=== PATIENT | female | born 1940 | race Caucasian/White ===

== ENCOUNTER → 2017-11-26 | Outpatient (CLI) | payer OTHER ==
[~2017-11-26] MED LIST: CRESTOR10 MG; LEVOTHYROXIN0.075 MG; POTASSIUM20 PO
== END ==
LOC: RAD 00:39
DX: Z12.31 Encounter for screening mammogram for malignant neoplasm of breast (principal)

== ENCOUNTER → 2018-07-08 | Outpatient (CLI) | payer OTHER ==
[~2018-07-08] VITALS: Ht 157.5 cm; Wt 62.6 kg
[~2018-07-08] MED LIST changes: +CARVEDILOL3.125 MG PO; +COZAAR 25 MG TA25 M1 PO; +LIPITOR 20 MG T20 M1 PO; +PRESERVISION A1 EAC2 PO; +SYNTHROID112 MC1 PO; +VITAMIN D1000 UNI2 PO
--- NOTE | ~2018-07-08 | EKG ---
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: CYNTHIA : 1940 Requested By: Chun Mayer Order Number: [id number] MD: Chun Mayer Measurements Intervals [employer] Rate: 66 P: -15 OR: 166 QRS: -56 QRSD: 155 T: 127 QT: 440 QTc: 461 Interpretive Statements Sinus rhythm Left bundle branch block Compared to ECG 06/24/2018 12:53:28 No significant changes Electronically Signed On 07-08-2018 7:56:56 MODELING DIRECTOR by Chun Mayer [email or web address] <ELECTRONICALLY SIGNED> By: Chun Mayer MD, [facility] 07/08/18 0756 9 9 Chun Mayer MD, [facility] /EPI
--- NOTE | ~2018-07-08 | CATHLAB ---
[facility] [place] [address] INVASIVE PROCEDURE REPORT Name: RILEYMOJGANNATA SHETH Room #: REG [facility]#: [id number] Admission: 07/08/18 Attend Phys: Chun Mayer, Discharge: Date of : 42 Date of Service: 07/08/18 0911 Report #: [id number] THIS REPORT FOR: //name// APPROVED REPORT Study performed: 07/08/2018 07:26:01 Patient Details The patient is a 78 year-old female Event Personnel Chun Mayer Picked Edge Sewing Machine Operator, Reginaldo Jacinto RN RN, Stephanie Muñoz Sandifer, David Monitor Procedures Performed Left Heart Cath w/or w/o Coronaries [id number] [facility] Indication Chest pain Procedure Narrative The Right Groin^ was infiltrated with 1% Lidocaine subcutaneous anesthesia. A PINNACLE 6FR Sheath #[id number] sheath was inserted into the . Coronary angiography was performed using coronary diagnostic catheters. The right coronary system was accessed and visualized with a JR4 catheter. The left coronary system was accessed and visualized with a JL4 catheter. The left ventricle was accessed and visualized with a PIGTAIL catheter. Left ventricular/Aortic Valve gradient assessed via catheter pullback. Left ventriculogram was performed in 30 degree projection. Closure device was deployed with a 6 Fr MYNXGRIP 6/7F #[id number]. Intraoperative Conscious Sedation Sedation start time: 8.18 Case end Time: 8.43 Fentanyl 25 mcg Versed 1.5 mg Fluoro Time: 1.42 minutes Dose: DAP 1598 cGycm2 1.42 mGy Contrast Type and Amount: Omnipaque 100 ml Coronary Angiography The patient's coronary anatomy is right dominant. Diagnostic Cath [facility] [address] [place] [address] INVASIVE PROCEDURE REPORT Name: NATA BYNUM Room #: REG [facility]#: [id number] Admission: 07/08/18 Attend Phys: Chun Mayer, Discharge: Date of : 42 Date of Service: 07/08/18 0911 Report #: [id number] Left Main Normal left main LAD The LAD was a large vessel that extended to the inferoapex, angiographically normal Diagonal 1 Large first diagonal branch, angiographically normal Circumflex Large nondominant circumflex comprised of a single bifurcating marginal branch The circumflex was normal. OM1 A distally arising, single marginal branch was angiographically normal Right Coronary Angiographically normal right coronary R PDA Large posterior descending branch, normal RPLV Moderate posterior lateral branch, angiographically normal Left Ventriculography The left ventricle is mildly dilated in size with abnormal contractility. The left ventricular ejection fraction is estimated to be 35. Left ventricular wall motion abnormalities are not present. There is no mitral insufficiency. Hemodynamics The aortic pressure is 139/58 mmHg with a mean of 88 mmHg. The left ventricular pressure is 153/8 mmHg with a mean of mmHg. The left ventricular end diastolic pressure is 17 mmHg. There was no gradient across the aortic valve upon pullback. Pullback from the left ventricle to the aorta revealed no gradient across the aortic valve. Conclusion 1. Moderately severe left ventricular dysfunction. Ejection fraction 35-40% 2. Normal left main 3. Normal coronary vasculature. Right coronary dominant circulation. Recommendations Aggressive Medical Therapy Medications Administered LETICIA Inhibitor (any) Beta Valeria (any) Statin (any) <ELECTRONICALLY SIGNED> By: Chun Mayer MD, FAC 07/08/18910 0 0 Chun Mayer MD, FACC /INF
[2018-07-08 07:54] VITALS: BP 140/64
== END | disposition home or self-care (01) ==
LOC: CATH 06:27
DX: I11.0 Hypertensive heart disease with heart failure (principal); I50.1 Left ventricular failure, unspecified; E78.5 Hyperlipidemia, unspecified; E03.9 Hypothyroidism, unspecified; Z90.49 Acquired absence of other specified parts of digestive tract; Z98.890 Other specified postprocedural states; Z98.41 Cataract extraction status, right eye; Z98.42 Cataract extraction status, left eye; Z82.49 Family history of ischemic heart disease and other diseases of the circulatory system; Z79.891 Long term (current) use of opiate analgesic; Z79.899 Other long term (current) drug therapy

== ENCOUNTER 2018-10-28 06:19 | Observation (INO) | payer OTHER ==
[~2018-10-28] VITALS: Ht 160 cm; Wt 61.2 kg
[2018-10-28 06:56] VITALS: BP 143/74
[2018-10-28 07:02] LABS: HEMATOCRIT 40.7 % (37.0-47.0); HEMOGLOBIN 13.9 gm/dL (12.0-15.0); MCH 31.3 pg (26.0-34.0); MCV 91.9 fL (80.0-100.0); PLATELET COUNT 206 thou/uL (150-400); RBC 4.43 mil/uL (4.20-5.00); RDW 12.8 % (10.5-14.5); WBC 5.1 thou/uL (4.0-11.0)
[2018-10-28 07:15] LABS: CALCIUM 9.8 mg/dL (8.5-10.1); CREATININE 0.9 mg/dL (0.6-1.0); POTASSIUM 3.9 mmol/L (3.5-5.1)
[2018-10-28 07:16] LABS: APTT 24.4 Seconds (24.5-32.8); PROTIME 10.6 Seconds (9.3-11.4)
[2018-10-28 07:21] LABS: TOTAL BILIRUBIN 0.8 mg/dL (<0.1-1.0); TOTAL PROTEIN 7.7 g/dL (6.4-8.2)
[2018-10-28 09:01] LABS: PLATELET ESTIMATE NORMAL
--- NOTE | 2018-10-28 11:07 | NUR ---
PT arrived to CV holding bed 2 from EP lab post biv icd placement. left chest incision dry and intact wih dermabond. no dressing. VSS.
--- NOTE | 2018-10-28 12:44 | NUR ---
Report called to April in CCU. Pt will be going to room 214. Pt and family notified of room.
--- NOTE | 2018-10-28 13:36 | NUR ---
LEFT CHEST PPM PROCEDURE SITE IS CDI WITH NO HEMATOMA. SHOULDER IMOBILZER IS ON AND HOB 45 DEGREES. WILL CONTINUE TO ASSESS.
[2018-10-28 15:01] VITALS: BP 149/86
[2018-10-28 19:15] VITALS: BP 135/64
[2018-10-29 00:05] VITALS: BP 130/57
--- NOTE | 2018-10-29 03:59 | NUR ---
AOX4, DENIES PAIN. V PACED O THE MONITOR. LEFT CHEST PACEMAKER SITE C/D/I, WITH LEFT ARM IMMOBILIZER ON. PULSES 2+/2+/ LUNG SOUNDS CLEAR. ON ROOM AIR. SCD ON. IV ON THE LEFT HAND AND RIGHT AC INTACT AND FLUSHES WELL. FF UP POC.
[2018-10-29 05:30] VITALS: BP 119/70
[2018-10-29 08:10] VITALS: BP 137/61
[2018-10-29 08:47] VITALS: BP 137/61
[2018-10-29 08:51] VITALS: BP 137/61
[2018-10-29 09:07] VITALS: BP 137/61
--- NOTE | 2018-10-29 09:08 | NUR ---
PT CARE ASSUMED APPROX 0700. PT ALERT AND ORIENTED X4. DENIES PAIN AND SOA. VSS. LEFT CHEST INCISION IS C/D/I. DEVICE CHECK AND CXR NORMAL THIS AM. PT TO DISCHARGE THIS SHIFT. PAPERWORK REVIEWED WITH PT AND SPOUSE. BOTH DENY QUESTIONS OR CONCERNS REGARDING DISCHARGE MEDS, F/U APPTS, ACTIVITY RESTRICTIONS, INCISION CARE, DIET AND GENERAL POST HOSPITAL CARES. IV OUT, TELE BOX OFF. HOSPITAL STAFF TO ESCORT PT OUT TIMELY.
--- NOTE | 2018-10-30 12:17 | P ---
[facility] [place] [address] PROCEDURE REPORT Name: NATA BYNUM Room #: 214-P [facility] Arlyn Galvez#: [id number] Admission: 10/28/18 ������������������ Attend Phys: Ed Mckee MD Discharge: 10/29/18 ������������������ Date of : 42 Report #: [id number] THIS REPORT FOR: //name// CC: Eduin Mckee PROCEDURE: Biventricular ICD implantation. PREOPERATIVE DIAGNOSES: 1. Nonischemic cardiomyopathy. 2. Left bundle-branch block. 3. 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 HISTORY OF PRESENT ILLNESS: The patient is a 78-year-old with history of nonischemic cardiomyopathy, left bundle branch block and [employer] functional class 2-3 heart failure symptoms, who has been on optimal medical therapy and is here for biventricular ICD implantation for primary prevention of sudden cardiac . ANESTHESIA: The patient underwent MAC anesthesia with no anesthesia related complications. DESCRIPTION OF PROCEDURE: The patient underwent informed consent. We discussed the details of the procedure including the risk, which include but not limited to bleeding, infection, vascular damage, cardiac perforation, pneumothorax. She understood these risks and was willing to proceed. The patient was brought to the EP laboratory in a fasting and nonsedated state and prepped and draped in a sterile fashion. She underwent venography demonstrating patency of the left axillary vein and received IV antibiotics prior to initiation of the procedure. Next, I injected lidocaine below the level of the left clavicle. Incision was made. A pocket was created over the prepectoral fascia and then sheaths were positioned using the modified Seldinger technique. Next, under fluoroscopy, a single coil ICD lead was placed in the right ventricular apex and an atrial lead was placed in the right atrial appendage both with adequate pacing and sensing thresholds. These leads were sutured to the prepectoral fascia. Next, the coronary sinus guide sheath was placed into the right atrium and quickly obtained access to the coronary sinus. Coronary sinus venogram demonstrate that there was a nice large posterolateral branch and the quadripolar [employer] lead was easily delivered into this vessel with no phrenic nerve stimulation and satisfactory pacing thresholds. The sheath was then split, and the lead remained in position. The lead was sutured to the prepectoral fascia, and then, the device was connected to all three leads. The pocket was irrigated with vancomycin and then the pocket was closed in 2 layers using 2-0 for the deep layer and 3-0 for the middle layer. Surgical glue was placed to the outer skin layer. The patient awoke neurologically and hemodynamically intact. No complications and no significant bleeding. [address] [address] PROCEDURE REPORT Name: NATA BYNUM Room #: 214-P MARY Galvez#: [id number] Admission: 10/28/18 ������������������ Attend Phys: Ed Mckee MD Discharge: 10/29/18 ������������������ Date of : 42 Report #: [id number] The implanted device was a [employer] model number [id number], serial #[id number]. The atrial lead was a [employer] model #2088TC, 52 cm, serial #[id number], with a P-wave of 4.3 millivolts, pacing impedance of 510 ohms and a pacing threshold of 0.75 volts at 0.5 milliseconds. The RV lead was a [employer] model #7122Q, 58 cm, serial #[id number], with an R-wave of 10.9 millivolts, pacing impedance of 900 ohms and the pacing threshold 0.5 volts at 0.5 milliseconds. The LV lead was [employer] model #1458Q, 86 cm, serial #[id number] with a pacing threshold of 1.75 volts at 0.5 milliseconds, pacing impedance of 780 ohms. The pacing vector utilized was M2-P4 as this had a best pacing threshold and it was more basal location. The device was programmed to the DDD 60-130 mode. The VT zone was set at 180-220 beats per minute with 3 rounds of bursts, followed by 3 rounds of ramp, followed by max output shocks. The VF zone was set greater than 220 beats per minute with ATP while charging followed by max output shocks. CONCLUSIONS: 1. Successful Bi-V ICD implantation. 2. Satisfactory atrial, right ventricular and left ventricular pacing and sensing thresholds. ��������������������������������������������� <ELECTRONICALLY SIGNED> ���������������������������������������� By: Ed Mckee MD ��������������������������������������������� 10/30/18 1217 1015 [id number] Ed Mckee MD /nt
== END 2018-10-29 09:30 | disposition home or self-care (01) ==
LOC: CATH 06:19 → 2N 13:14 → CATH 13:42 → ENTRNSPT 10-29 09:22 → EDTRNSPTSTS 10-29 09:25 → 2N 10-29 09:30
PROVIDERS: ADMIT Internal Medicine Cardiovascular Disease
DX: I42.9 Cardiomyopathy, unspecified (principal); I44.7 Left bundle-branch block, unspecified; E78.5 Hyperlipidemia, unspecified; E07.9 Disorder of thyroid, unspecified; I50.9 Heart failure, unspecified; Z79.899 Other long term (current) drug therapy

== ENCOUNTER → 2018-11-09 | Outpatient (CLI) | payer OTHER | LOC: RAD 13:57 | DX: D71 Functional disorders of polymorphonuclear neutrophils (principal); I42.0 Dilated cardiomyopathy; Z95.810 Presence of automatic (implantable) cardiac defibrillator; Z90.49 Acquired absence of other specified parts of digestive tract ==

== ENCOUNTER 2019-06-30 07:34 | Inpatient (IN) | payer OTHER ==
[2019-06-16 12:50] LABS: URINE BILIRUBIN NEGATIVE (Negative); URINE BLOOD NEGATIVE (Negative); URINE CLARITY CLEAR; URINE COLOR YELLOW; URINE GLUCOSE-RANDOM* NEGATIVE (Negative); URINE KETONES NEGATIVE (Negative); URINE LEUKOCYTES-REFLEX TRACE (Negative); URINE NITRITE-REFLEX NEGATIVE (Negative); URINE PROTEIN (DIPSTICK) NEGATIVE (Negative); URINE SPECIFIC GRAVITY <= 1.005 (1.005-1.035); URINE UROBILINOGEN 0.2 E.U./dl (0.2-1.0)
[2019-06-16 12:51] LABS: HEMATOCRIT 42.6 % (37.0-47.0); HEMOGLOBIN 14.3 gm/dL (12.0-15.0); MCH 31.1 pg (26.0-34.0); MCHC 33.6 g/dL (28.0-37.0); MCV 92.7 fL (80.0-100.0); RBC 4.59 mil/uL (4.20-5.00); RDW 12.6 % (10.5-14.5); WBC 5.8 thou/uL (4.0-11.0)
[2019-06-16 13:00] LABS: PROTIME 10.5 Seconds (9.3-11.4)
[2019-06-16 13:01] LABS: ALBUMIN 4.3 g/dL (3.4-5.0); CALCIUM 9.6 mg/dL (8.5-10.1); CREATININE 0.9 mg/dL (0.6-1.0); POTASSIUM 4.5 mmol/L (3.5-5.1)
[~2019-06-30] VITALS: Ht 160 cm; Wt 61.2 kg
[2019-06-30 13:44] VITALS: BP 157/95
[2019-06-30 18:00] VITALS: BP 168/80
--- NOTE | 2019-06-30 18:58 | NUR ---
PT ARRIVED TO ROOM 442 PT IS ALERT XS 4 . HAD RIGHT TOTAL KNEE. REPLACEMENT. REGULAR DIET DIETARY BROUGHT LATE TRAY. PT W/O PAIN OR RESP DISTRESS.
--- NOTE | 2019-06-30 19:21 | NUR ---
pt admiited from PACU at 1800pm, pt has R total knee replacement today, pt is A&OX3, PT'vs are stable, pt starts IV fliuds , pt starts eating dinner, pt denies pain and sob , pt's R knee dressing is CDI.PT's family stay at pt's bedside.
[2019-06-30 19:40] VITALS: BP 149/61
[2019-07-01 00:32] VITALS: BP 122/55
--- NOTE | 2019-07-01 04:00 | NUR ---
PATIENT ALERT AND ORIENTED X4. DENIES ANY PAIN AT THIS TIME. EXPLAINED TO PATIENT THAT THE BLOCK WILL WEAR OFF ANYTIME AND NOT TO LET HER PAIN GET VERY HIGH. SAT ON DEGE OF BE AND THEN STOOD BY THE BED FOR A FEW MINUTES. DRESSING ON R KNEE DRY AND INTACT WITH A AIDEE DRESSING, POLAR ICE AND AN LETICIA WRAPPED OVER IT. SON IN ROOM WITH PATIENT. SLEPT OFF AND ON DURING NIGHT.
[2019-07-01 04:06] VITALS: BP 128/49
[2019-07-01 05:20] LABS: HEMATOCRIT 35.5 % (37.0-47.0); HEMOGLOBIN 11.8 gm/dL (12.0-15.0); MCH 30.8 pg (26.0-34.0); MCHC 33.2 g/dL (28.0-37.0); MCV 92.8 fL (80.0-100.0); RBC 3.83 mil/uL (4.20-5.00); WBC 8.2 thou/uL (4.0-11.0)
[2019-07-01 07:58] VITALS: BP 133/59
[2019-07-01] MEDS ORDERED: ASPIR 8181 MG PO (10:18)
[2019-07-01] MEDS ORDERED: NEURONTIN 300300 M1 PO (10:18)
[2019-07-01 15:59] VITALS: BP 133/59
--- NOTE | 2019-07-01 17:34 | NUR ---
ASSUMED CARE OF PATIENT AT 0715, PATIENT ALERT AND ORIENTED X 4. PATIENT UP WITH ASSIST X 1 WITH GAIT BELT AND WALKER. PATIENT DENIES PAIN THIS SHIFT, BUT MEDICATED WITH HYDROCODONE X 2 PRIOR TO PHYSICAL THERAPY. PATIENT WORKED WITH PHYSICAL THERAPY/LEONARDO X 2 THIS SHIFT. LEONARDO/PT STATED PATIENT OK FOR DISCHARGE. ELODIA/MASTER STEAM YACHT HERE THIS AM, AND PUT IN ORDERS IF OK'D BY PHYSICAL THERAPY FOR DISCHARGE, OK FOR PATIENT TO GO HOME. THIS RN PUT ORDER IN FOR DISCHARGE TO HOME. RIGHT HAND IV WITH D51/2 NS AT 100CC/HR. IV FLUIDS D/C AT ABOUT 1400. RIGHT IV DISCONTINUED PRIOR TO DISCHARGE. THIS RN WENT OVER ALL DISCHARGE PAPERWORK AND ALL PERSONAL BELONGINGS SENT WITH PATIENT THE PATIENT. FAMILY AT BEDSIDE ALL DAY UNTIL DISCHARGE.
--- NOTE | 2019-07-13 14:57 | O ---
[facility] [place] [address] OPERATIVE REPORT Name: NATA BYNUM Room #: 442-P [facility] M.R.#: [id number] Admission: 06/30/19 Attend Phys: Rolf Cruz MD Discharge: 07/01/19 Date of : 42 Report #: [id number] THIS REPORT FOR: //name// CC: Eduin Cruz DATE OF SERVICE: 06/30/2019 PREOPERATIVE DIAGNOSIS: Right knee osteoarthritis. POSTOPERATIVE DIAGNOSIS: Right knee osteoarthritis. PROCEDURE: Right total knee arthroplasty using Navio robotic assistance. SURGEON: Rolf Cruz MD. CONTINUOUS IMPROVEMENT DIRECTOR: Mariah Becker PA-C. INDICATIONS FOR CONTINUOUS IMPROVEMENT DIRECTOR: Throughout the case, extensive retraction and manipulation of the knee was required. This was afforded to me by my hospital aides and assistants teacher. ANESTHESIA: LMA with an adductor canal block. IMPLANTS: [employer]hew size 5 narrow Legion cobalt chrome, posterior stabilized femur, size 3 tibia, size 10 polyethylene and size 32 patella. TOURNIQUET TIME: 52 minutes. ESTIMATED BLOOD LOSS: 25 mL. COMPLICATIONS: None. SPECIMENS: None. CONDITION UPON LEAVING THE OPERATING ROOM: Stable. INDICATIONS FOR PROCEDURE. The patient is a 79-year-old female with severe right knee osteoarthritis. She had failed conservative measures for this and after discussion with her, she elected for right total knee arthroplasty. DESCRIPTION OF PROCEDURE: Risks, benefits, alternatives, complications were discussed in detail with the patient including but not limited to risk of anesthesia, risk of damage to nerves, arteries, blood vessels, risk for infection, bleeding, risk for continued knee pain, need for reoperation. Informed consent was obtained from the patient. Right knee was appropriately marked in the preoperative holding area. IV Ancef was given for preoperative [address] [address] OPERATIVE REPORT Name: FLETCHERNATA Room #: 442-P [facility] Tim.R.#: [id number] Admission: 06/30/19 Attend Phys: Rolf Cruz MD Discharge: 07/01/19 Date of : 42 Report #: [id number] antibiotics. Adductor canal block was placed by Anesthesia. She was brought to the operating room and placed in supine position on operating room table. LMA anesthesia was induced without complication. Tourniquet was placed on the right thigh. Right lower extremity was prepped and draped in normal sterile fashion. Timeout was performed properly identifying the patient and procedure as well as the instrumentation and implants. All in the operating room were in agreement. Right lower extremity was exsanguinated, tourniquet was inflated. Tourniquet time was 52 minutes. Standard midline approach to the knee was made with 10 blade through the skin. Dissection was taken down sharply to the fascia and deep flaps were developed medially and laterally. Fresh 10 blade was used to make a medial parapatellar arthrotomy and inspected. There was severe medial compartment osteoarthritis with moderate lateral and patellofemoral involvement. ACL and PCL were removed sharply. Reference pins were placed in the femur and the tibia of the knee was digitally mapped using the Tradyo robotic system. Intraoperative plan was made. We sized a size 5 narrow femur, a size 3 tibia with a size 11 spacer. After acceptance of the intraoperative plan, the distal femoral cut was made with a Navio bur. The distal femoral cutting block was pinned in place. Anterior, posterior and chamfer cuts were made. Attention was then turned to the tibia. The remainder of the menisci removed with Bovie cautery. Tibial resection guide was then pinned in place using the Tradyo system for placement of the guide and tibial resection was made. After this, flexion and extension gaps were checked and found to have good balance in flexion and extension both medially and laterally. Tibia was sized, found to be a size 3. A size 3 tibial trial was placed, pinned and punched. A size 5 femoral trial was placed and the box cut was made. This was then trialed with a size 9 and then a size 10 polyethylene. The size 10 polyethylene had the best fit with range of motion and laxity demonstrating a millimeter laxity medially and laterally throughout range of motion. After this, 9 mm was resected from the posterior surface of the patella and a size 32 patellar trial button was placed. Knee was taken through range of motion, found to have good patellar tracking. After this, trial components were removed. Bony ends were thoroughly irrigated with normal saline. A final size 3 tibia, size 5 Legion narrow cobalt chrome posterior stabilized femur and a size 32 patella were cemented in place using standard cementation techniques. While the cement cured, a periarticular injection consisting of morphine, ropivacaine, epinephrine and Toradol was placed around the knee joint capsule. After the cement cured, the tourniquet was deflated. Hemostasis was obtained with Bovie cautery. Final size 10 polyethylene was placed. A gram of vancomycin was placed deep in the joint. Fascia was closed with 0 Vicryl, skin was closed with 2-0 Vicryl, 3-0 Monocryl, Dermabond and a AIDEE dressing was applied. The patient tolerated this procedure well and went to the recovery room in care of Anesthesia postoperatively. <ELECTRONICALLY SIGNED> By: Rolf Cruz MD 07/13/19 1457 1619 1638 Rolf Cruz MD /ruthie
== END 2019-07-01 17:44 | disposition home or self-care (01) | DRG 470 ==
LOC: PRE 07:34 → TBA 12:45 → 4S 12:45 → ENTRNSPT 07-01 16:49 → 4S 07-01 17:44
PROVIDERS: ADMIT Orthopaedic Surgery
PROC: 0SRC0J9 Replacement of Right Knee Joint with Synthetic Substitute, Cemented, Open Approach (ICD-10-PCS; principal; 2019-06-30)
PROC: 8E0Y0CZ Robotic Assisted Procedure of Lower Extremity, Open Approach (ICD-10-PCS; principal; 2019-06-30)
DX: M17.11 Unilateral primary osteoarthritis, right knee (principal); E89.0 Postprocedural hypothyroidism; Z90.49 Acquired absence of other specified parts of digestive tract
CPT/HCPCS: 10102; 50010; 50101; 50415; 50954; 51130; 51225; 51320; 52001; 52282; 53000; 53078; 53364; 54118; 56527; 56528; 57095; 57103; 57110; 57127; 57179; 62110; 62900; 64039; 70005

== ENCOUNTER 2019-07-10 03:25 | Emergency (ER) | payer OTHER ==
[~2019-07-10] VITALS: Ht 160 cm; Wt 69.4 kg
[~2019-07-10 03:25] MED LIST changes: +ASPIR 8181 MG PO; +NEURONTIN 300300 M1 PO
[2019-07-10 04:10] LABS: ANION GAP 11 mmol/L (7-16); BUN 11 mg/dL (7-18); CALCIUM 9.1 mg/dL (8.5-10.1); CHLORIDE 101 mmol/L (98-107); CO2 24 mmol/L (21-32); CREATININE 0.8 mg/dL (0.6-1.0); GLUCOSE 110 mg/dL (74-106); POTASSIUM 3.4 mmol/L (3.5-5.1); SODIUM 136 mmol/L (136-145)
[2019-07-10 04:16] LABS: HEMATOCRIT 31.1 % (37.0-47.0); HEMOGLOBIN 10.5 gm/dL (12.0-15.0); MCHC 33.7 g/dL (28.0-37.0); MCV 92.1 fL (80.0-100.0); PLATELET COUNT 346 thou/uL (150-400); RBC 3.38 mil/uL (4.20-5.00); RDW 12.1 % (10.5-14.5); WBC 5.1 thou/uL (4.0-11.0)
[2019-07-10 04:19] LABS: MAGNESIUM 1.9 mg/dL (1.8-2.4); TROPONIN-I <0.06 ng/mL (<0.06)
[2019-07-10 04:44] LABS: URINE BILIRUBIN NEGATIVE (Negative); URINE BLOOD NEGATIVE (Negative); URINE CLARITY CLEAR; URINE COLOR YELLOW; URINE GLUCOSE-RANDOM* NEGATIVE (Negative); URINE KETONES NEGATIVE (Negative); URINE LEUKOCYTES-REFLEX TRACE (Negative); URINE NITRITE-REFLEX NEGATIVE (Negative); URINE PROTEIN (DIPSTICK) NEGATIVE (Negative); URINE UROBILINOGEN 0.2 E.U./dl (0.2-1.0)
[2019-07-10 05:16] LABS: ABSOLUTE NEUTROPHILS 3.3 thou/uL (1.4-8.2); ATYPICAL LYMPHS 3 %
[2019-07-10] MEDS ORDERED: ZOFRAN ODT4 MG PO (05:21)
[2019-07-10 05:30] VITALS: BP 127/67
--- NOTE | 2019-07-11 13:12 | EKG ---
[place] [address] [facility] [place] [address] ELECTROCARDIOGRAM REPORT Name: NATA BYNUM [id number] Admission: 07/10/19 Attend Phys: Discharge: 07/10/19 Date of : 42 Report #: [id number] THIS REPORT FOR: //name// [facility] Test Date: 2019-07-10 Test Time: 03:41:26 Pat Name: NATA BYNUM Department: Room: Gender: F Brand Analyst: : 1940 Requested By: Misael Uriarte Order Number: [id number] MD: Chun Mayer Measurements Intervals [place] Rate: 76 P: -16 AL: 147 QRS: -53 QRSD: 125 T: 102 QT: 435 QTc: 490 Interpretive Statements Atrial-sensed ventricular-paced rhythm No further analysis attempted due to paced rhythm Compared to ECG 07/08/2018 07:20:02 Pacing is now present Electronically Signed On 07-11-2019 13:12:42 FORGING MACHINE OPERATOR by Chun Mayer [email or web address] <ELECTRONICALLY SIGNED> By: Chun Mayer MD, [facility] 07/11/19 1312 0341 0341 Chun Mayer MD, FAC /EPI
== END 2019-07-10 05:30 | disposition home or self-care (01) ==
LOC: ER 03:25
PROVIDERS: Emergency Medicine
DX: R53.1 Weakness (principal); I10 Essential (primary) hypertension; E78.5 Hyperlipidemia, unspecified; E03.9 Hypothyroidism, unspecified; Z90.49 Acquired absence of other specified parts of digestive tract; Z90.89 Acquired absence of other organs; Z86.018 Personal history of other benign neoplasm; Z96.651 Presence of right artificial knee joint; Z95.0 Presence of cardiac pacemaker

== ENCOUNTER → 2019-09-20 | Outpatient (CLI) | payer OTHER ==
[~2019-09-20] MED LIST changes: +ZOFRAN ODT4 MG PO
== END ==
LOC: SJCVC 11:33
DX: Z45.02 Encounter for adjustment and management of automatic implantable cardiac defibrillator (principal); R94.31 Abnormal electrocardiogram [ECG] [EKG]; I42.0 Dilated cardiomyopathy; I10 Essential (primary) hypertension; E78.5 Hyperlipidemia, unspecified; E03.9 Hypothyroidism, unspecified; Z95.810 Presence of automatic (implantable) cardiac defibrillator; Z90.49 Acquired absence of other specified parts of digestive tract; Z96.651 Presence of right artificial knee joint; Z79.899 Other long term (current) drug therapy

== ENCOUNTER → 2019-12-09 | Outpatient (CLI) | payer OTHER | LOC: SJCVC 09:57 | DX: R94.31 Abnormal electrocardiogram [ECG] [EKG] (principal); I42.0 Dilated cardiomyopathy; I10 Essential (primary) hypertension; E78.5 Hyperlipidemia, unspecified; Z95.810 Presence of automatic (implantable) cardiac defibrillator ==

== ENCOUNTER → 2020-02-03 | Outpatient (CLI) | payer OTHER | LOC: SJCVC 12:59 | PROVIDERS: ATTEND Internal Medicine Cardiovascular Disease | DX: Z45.02 Encounter for adjustment and management of automatic implantable cardiac defibrillator (principal); R94.31 Abnormal electrocardiogram [ECG] [EKG]; I44.7 Left bundle-branch block, unspecified; I42.0 Dilated cardiomyopathy; E03.9 Hypothyroidism, unspecified; E78.5 Hyperlipidemia, unspecified; Z95.810 Presence of automatic (implantable) cardiac defibrillator; Z79.899 Other long term (current) drug therapy; Z82.49 Family history of ischemic heart disease and other diseases of the circulatory system ==

== ENCOUNTER → 2020-06-07 | Outpatient (CLI) | payer OTHER | LOC: SJCVCIMAG 08:42 | PROVIDERS: ATTEND Internal Medicine | DX: I08.8 Other rheumatic multiple valve diseases (principal); I11.9 Hypertensive heart disease without heart failure; R94.31 Abnormal electrocardiogram [ECG] [EKG]; I45.10 Unspecified right bundle-branch block; I42.0 Dilated cardiomyopathy; E78.5 Hyperlipidemia, unspecified; Z95.810 Presence of automatic (implantable) cardiac defibrillator; Z79.899 Other long term (current) drug therapy ==

== ENCOUNTER → 2020-12-06 | Outpatient (CLI) | payer OTHER | LOC: SJCVC 13:53 | PROVIDERS: ATTEND Internal Medicine | DX: R94.31 Abnormal electrocardiogram [ECG] [EKG] (principal); I42.0 Dilated cardiomyopathy; I10 Essential (primary) hypertension; E78.5 Hyperlipidemia, unspecified; E03.9 Hypothyroidism, unspecified; Z90.49 Acquired absence of other specified parts of digestive tract; Z95.810 Presence of automatic (implantable) cardiac defibrillator; Z98.890 Other specified postprocedural states; Z79.899 Other long term (current) drug therapy; Z82.49 Family history of ischemic heart disease and other diseases of the circulatory system ==

== ENCOUNTER → 2021-02-06 | Outpatient (CLI) | payer OTHER | LOC: SJCVC 09:57 | PROVIDERS: ATTEND Internal Medicine Cardiovascular Disease | DX: R94.31 Abnormal electrocardiogram [ECG] [EKG] (principal); I44.4 Left anterior fascicular block; I42.0 Dilated cardiomyopathy; I44.7 Left bundle-branch block, unspecified; I10 Essential (primary) hypertension; I11.0 Hypertensive heart disease with heart failure; I50.22 Chronic systolic (congestive) heart failure; E78.5 Hyperlipidemia, unspecified; E03.9 Hypothyroidism, unspecified; I25.2 Old myocardial infarction; G04.91 Myelitis, unspecified; Z95.810 Presence of automatic (implantable) cardiac defibrillator; Z79.899 Other long term (current) drug therapy ==

== ENCOUNTER → 2021-06-27 | Outpatient (CLI) | payer OTHER | LOC: SJCVCIMAG 09:01 | PROVIDERS: ATTEND Internal Medicine | DX: I08.8 Other rheumatic multiple valve diseases (principal); R94.31 Abnormal electrocardiogram [ECG] [EKG]; I42.0 Dilated cardiomyopathy; I10 Essential (primary) hypertension; E78.5 Hyperlipidemia, unspecified; Z95.810 Presence of automatic (implantable) cardiac defibrillator; N83.209 Unspecified ovarian cyst, unspecified side; E03.9 Hypothyroidism, unspecified; I44.7 Left bundle-branch block, unspecified; Z79.899 Other long term (current) drug therapy ==